=== PATIENT | male | born 1965 | race Caucasian/White ===

== ENCOUNTER → 2021-09-30 11:56 | Outpatient (CLI) | payer OTHER, SELFPAY ==
[2021-09-30 20:14] LABS: Add Manual Diff / Slide Review NO; Basophils Absolute Auto 0 /uL (0-100); Basophils Percent Auto 1.1 % (0-2); Eosinophils Absolute Auto 100 /uL (0-450); Eosinophils Percent Auto 1.9 % (2-4); Hematocrit 41.9 % (41-53); Hemoglobin 14.4 g/dL (13.5-17.5); Lymphocytes Absolute Auto 1200 /uL (1100-4500); Lymphocytes Percent Auto 30.7 % (25-40); Mean Corpuscular HGB Conc 34.3 % (30-36); Mean Corpuscular Hemoglobin 29.8 PG (26-34); Monocytes Absolute Auto 300 /uL (0-900); Monocytes Percent Auto 8.6 % (3-14); Neutrophils Absolute Auto 2300 /uL (1500-7000); Neutrophils Percent Auto 57.7 % (50-75); Platelet Count 263 X10^3/uL (150-400); Red Blood Cell Count 4.81 X10^6/uL (4.5-5.9); Red Cell Distribution Width 13.9 % (11.6-14.8)
== END ==
PROVIDERS: PCP Family Medicine; Referring Provider Family Medicine; Visit Provider Family Medicine
DX: D72.819 Decreased white blood cell count, unspecified (principal)
CPT/HCPCS: 85025

== ENCOUNTER → 2022-01-24 06:49 | Outpatient (CLI) | payer OTHER, SELFPAY ==
[2022-01-24 20:21] LABS: COVID19 - ORCAS (NP or Nasal) Negative (Negative)
== END ==
PROVIDERS: PCP Family Medicine; Visit Provider Family Medicine
DX: Z20.822 Contact with and (suspected) exposure to COVID-19 (principal); Z01.812 Encounter for preprocedural laboratory examination
CPT/HCPCS: U0003

== ENCOUNTER 2022-01-25 06:41 | Day surgery (SDC) | payer OTHER, SELFPAY ==
[2022-01-25 07:12] VITALS: BMI 28.5
[2022-01-25 07:16] VITALS: BP 125/78; PULSE 50; RESP 12; TEMP 36.6; O2SAT 98
[2022-01-25] MEDS: LACTATED RINGERS 1,000 ML 42 ML IV (07:28)
--- NOTE | 2022-01-25 07:41 | P.HP_ITS ---
History of Present Illness History of Present Illness Date Patient Seen: 01/25/22 Time Patient Seen: 07:41 Chief complaint: Colonoscopy Narrative: H/o colon polyps, no symptoms, no family history for colon cancer. Patient History Medical History Antiphospholipid syndrome Calculus of gallbladder Ganglion cyst History of colon polyps History of pulmonary embolism Intracranial venous sinus thrombosis, nonpyogenic Other ferry terminal supervisor (current) drug therapy Pure hypercholesterolemia Family & Social History Social History: household members spouse Tobacco & Substance use: Smoking Status Never smoker alcohol intake frequency 0-2 drinks per day Substance Use Type does not use Meds Home Medications and Allergies Home Medications Medication Instructions Recorded Confirmed Type cetirizine 10 mg capsule (All Day 10 mg PO DAILY PRN Allergy Symptoms 09/02/20 01/25/22 History Allergy (cetirizine)) coenzyme Q10 100 mg capsule 100 mg PO DAILY 09/02/20 01/25/22 History melatonin PO 09/02/20 07/28/21 History multivitamin with minerals PO 09/02/20 07/28/21 History [Multiple Vitamin] omeprazole 10 mg capsule,delayed 10 mg PO DAILY PRN acid reflx 09/02/20 01/25/22 History release pt/inr test strip #1 ea 09/02/20 07/28/21 History atorvastatin 20 mg tablet 20 mg PO BEDTIME #90 tabs 07/28/21 01/25/22 Rx warfarin 10 mg tablet 10 mg PO DAILY #90 tabs 07/28/21 01/25/22 Rx warfarin 2.5 mg tablet 2.5 - 5 mg PO DAILY #180 tabs 07/28/21 01/25/22 Rx enoxaparin 40 mg/0.4 mL 40 mg (0.4 mL) SUBCUT Q12H #4 mL 11/18/21 01/25/22 Rx subcutaneous syringe sodium,potassium,mag sulfates 17.5 See Rx Instructions PO .COMPLEX 11/30/21 01/25/22 Rx gram-3.13 gram-1.6 gram oral soln #354 mL (Suprep Bowel Prep Kit) Allergies Allergy/AdvReac Type Severity Reaction Status Date / Time No Known Drug Allergies Allergy Verified 01/25/22 07:07 Review of Systems Review of Systems ROS: Yes All systems reviewed with the patient and are negative except as otherwise documented Exam Vital Signs (past 8 hours): - 01/25/22 07:16 Temperature 97.9 F Pulse Rate 50 L Respiratory Rate 12 Blood Pressure 125/78 Pulse Oximetry 98 Oxygen Delivery Method Room Air Oxygen Delivery Method Room Air Const General: cooperative and healthy appearing Nutritional Appearance: average body habitus HENMT Head: normal to inspection Teeth and gingiva: dentition normal Throat: posterior oropharynx normal Eyes General: appearance normal, both eyes and all related structures Sclera: sclerae normal Neck Neck: trachea midline Chest Chest: normal inspection of the chest Resp Effort & Inspection: normal respiratory effort Cardio Rate: regular rate Rhythm: regular rhythm GI Inspection: normal to inspection Palpation: soft Skin General: no rashes or lesions noted Neuro General: patient alert, patient awake and patient oriented x3 Cognition: normal cognition Psych Appearance: grossly normal Judgment: judgment good Assessment & Plan Assessment & Plan narrative: h/o colon polyps colonoscopy with anesthesia COVID-19 COVID-19 status: Negative Time Spent With Patient Critical Care time: I spent a total of [] minutes of critical care time on this patient's care today; this time is exclusive of procedural time.
--- NOTE | 2022-01-25 07:45 | PM.OP.COLON ---
Operative Date/Time/Diagnoses Date of procedure: 01/25/22 Time of procedure: 08:10 Pre-op diagnosis: History of colon polyps Post-op diagnosis: same Procedure & Clinicians Study performed: Colonoscopy with anesthesia Same procedure as scheduled: Yes Indications: History of colon polyps Surgeon: Margie Waite Procedure Notes Procedure in detail: Preop diagnosis: History of colon polyps Postop diagnosis: Same Operative procedure: Colonoscopy with anesthesia Findings: No polyps, no diverticulosis. No abnormalities Surgeon: Anita Waite MD Anesthetic: Per anesthesia Procedure: Patient placed in a lateral position. Rectal exam performed showing normal tone no masses. Colonoscope inserted into the rectum and advanced to ileocecal valve with minimal difficulty. Insufflation and extraction of the scope including retroflex in the rectum had the above findings. Impression: Normal colonoscopy. No polyps identified. No diverticulosis appreciated. Plan: Repeat colonoscopy in 5 years unless otherwise indicated by change in clinical condition Specimen(s): none sent Complications: none Post-procedure Recommendations: Colonoscopy in 5 years Follow up: as needed Disposition: PACU
[2022-01-25 08:10] VITALS: BP 89/57; PULSE 55; RESP 16; TEMP 36.6; O2SAT 97
[2022-01-25 08:15] VITALS: BP 103/68; PULSE 55; RESP 16; O2SAT 97
[2022-01-25 08:20] VITALS: BP 105/76; PULSE 64; RESP 18; TEMP 36.6; O2SAT 98
[2022-01-25 08:25] VITALS: BP 103/71; PULSE 63; RESP 20; O2SAT 98
[2022-01-25 08:30] VITALS: BP 116/78; PULSE 61; RESP 14; TEMP 36.6; O2SAT 98
== END 2022-01-25 08:44 | disposition home or self-care (01) ==
PROVIDERS: PCP Family Medicine; Referring Provider Surgery; Visit Provider Surgery
PROC: 0DJD8ZZ Inspection of Lower Intestinal Tract, Via Natural or Artificial Opening Endoscopic (ICD-10-PCS; CPT 45378; principal; 2022-01-25 07:45)
DX: Z12.11 Encounter for screening for malignant neoplasm of colon (principal); Z86.010 Personal history of colon polyps
CPT/HCPCS: 45378; J2704; J3010

== ENCOUNTER → 2022-02-01 10:50 | Outpatient (CLI) | payer OTHER, SELFPAY ==
--- NOTE | 2022-02-01 10:51 | DI.CT.S_ITS ---
PROCEDURE: CT CHEST ABD PEL W CON INDICATIONS: Worsening bilateral flank pain negative lab and plain xray TECHNIQUE: After the administration of oral and intravenous contrast, axial sections acquired from the supraclavicular neck to the pubic symphysis. Coronal and sagittal reformats were performed. For radiation dose reduction, the following was used: automated exposure control, adjustment of mA and/or kV according to patient size. COMPARISON: None. FINDINGS: Image quality: Excellent. CHEST: Lower Neck: No enlarged lymph nodes. Thyroid: Unremarkable. Axillae: No enlarged lymph nodes. Chest Wall: Unremarkable. Lungs and Airways: No consolidation. There is a 6 mm, 4 mm, and 5 mm pulmonary nodule within the left lower lobe (series 3/image is 214, 221, and 237, respectively). A pleural-based 4 mm pulmonary nodule is present within the right lower lobe (series 3/image 256). Pleura: No pneumothorax or pleural effusions. Heart: Heart size is normal. No pericardial effusion. Thoracic Vessels: The aorta and pulmonary arteries demonstrate normal size. Mediastinum and Yanira: No enlarged lymph nodes. Esophagus: No wall thickening. No hiatal hernia. ABDOMEN: Liver: Unremarkable. Gallbladder: A 1.0 cm gallstone is present within the gallbladder fundus. No gallbladder wall thickening or pericholecystic fluid. Biliary ducts: Unremarkable. Pancreas: Unremarkable. Spleen: Unremarkable. Adrenal Glands: Unremarkable. Kidneys and Ureters: Unremarkable. Stomach and Bowel: Stomach, small bowel loops, and colon are unremarkable. The appendix is not visualized; however there is no discrete right lower quadrant fluid or fat stranding to suggest acute appendicitis. Peritoneum: No abnormal intraperitoneal fluid. No free air. Ventral Wall: No hernia. Abdominal Nodes: No retroperitoneal or mesenteric adenopathy by size criteria. Vessels: Aorta and inferior vena cava are normal in size. There are scattered atheromatous calcifications throughout the aorta and iliac arteries bilaterally. PELVIS: Pelvic Organs: Unremarkable. Bladder: Unremarkable. Pelvic Nodes: No enlarged lymph nodes. Miscellaneous: No inguinal hernias are seen. Bones: Unremarkable. IMPRESSION: 1. No hydronephrosis, nephrolithiasis, hydroureter, or ureterolithiasis. No findings to explain flank pain. 2. The appendix is not visualized; however there are no ancillary findings to suggest acute appendicitis. 3. 4-6 mm pulmonary nodules as above. 6-[address] follow-up recommended. Please see follow-up guidelines below. Fleischner Society criteria for SOLID lung nodule followup. Nodule size (mm)Low-risk patientHigh-risk patient<6 (single or multiple)No routine followup.Optional CT at 12 months. 6-8 (single or multiple)CT at 6-12 months, then optional CT at 18-24 mo.CT at 6-12 months, then CT at 18-24 months. >8 (single)CT at 3 months, PET-CT, or biopsy. Same as for low-risk pts. >8 (multiple)CT at 3-6 months, then optional CT at 18-24 mo.CT at 3-6 months, then CT at 18-24 months. Fleischner Society criteria for SUB-SOLID lung nodule followup. Solitary pure ground-glass nodules<6 mm (ground glass or part solid)No followup needed. 6 mm or larger (ground glass)CT at 6-12 months to confirm persistence, then CT every 2 years until 5 years.6 mm or larger (part solid)CT at 3-6 months to confirm persistence, then annual CT until 5 years if unchanged and solid component remains <6 mm. Multiple sub-solid nodules<6 mmCT at 3-6 months, then CT consider at 2 & 4 years for high risk patients. [address] at 3-6 months. Subsequent management based on most suspicious lesions. Recommendations do not apply to lung cancer screening, patients with immunosuppression, or patients with known primary cancer. Dictated by: Rona Echols M.D. on 02/01/2022 at 17:38 Approved by: Rona Echols M.D. on 02/01/2022 at 17:44
== END ==
PROVIDERS: PCP Family Medicine; Referring Provider Family Medicine; Visit Provider Family Medicine
DX: R10.9 Unspecified abdominal pain (principal); R91.8 Other nonspecific abnormal finding of lung field; K80.20 Calculus of gallbladder without cholecystitis without obstruction
CPT/HCPCS: 71260; 74177; Q9967

== ENCOUNTER → 2022-10-31 13:11 | Outpatient (CLI) | payer OTHER, SELFPAY ==
[2022-10-31 20:07] LABS: Add Manual Diff / Slide Review NO; Basophils Absolute Auto 0 /uL (0-100); Basophils Percent Auto 0.7 % (0-2); Eosinophils Absolute Auto 100 /uL (0-450); Hematocrit 38.8 % (41-53); Hemoglobin 13.6 g/dL (13.5-17.5); Lymphocytes Absolute Auto 1400 /uL (1100-4500); Lymphocytes Percent Auto 25.2 % (25-40); Mean Corpuscular Hemoglobin 29.7 PG (26-34); Mean Corpuscular Volume 84.9 fL (80-100); Monocytes Absolute Auto 400 /uL (0-900); Monocytes Percent Auto 7.3 % (3-14); Neutrophils Absolute Auto 3600 /uL (1500-7000); Neutrophils Percent Auto 64.8 % (50-75); Platelet Count 260 X10^3/uL (150-400); Red Blood Cell Count 4.57 X10^6/uL (4.5-5.9); Red Cell Distribution Width 14.4 % (11.6-14.8); White Blood Cell Count 5.6 X10^3/uL (4.5-11.0)
[2022-10-31 20:19] LABS: Alanine Aminotransferase 31 IU/L (<50); Albumin 3.9 g/dL (3.5-5.0); Albumin Globulin Ratio 1.5 (1.0-2.8); Alkaline Phosphatase 92 U/L (38-126); Aspartate Aminotransferase 47 IU/L (17-59); BUN Creatinine Ratio 24.4 (6-22); Bilirubin Total 0.4 mg/dL (0.2-1.3); Blood Urea Nitrogen 22 mg/dL (9-20); Calcium 8.7 mg/dL (8.4-10.2); Carbon Dioxide 25 mmol/L (22-32); Chloride 101 mmol/L (98-107); Cholesterol 157 mg/dL (140-199); Estimated Glomerular Filt Rate > 60 mL/min (>60); Globulin 2.6 g/dL (1.7-4.1); Glucose 96 mg/dL (70-100); HDL Cholesterol 62 mg/dL (40-60); HEMOLYSIS 24 (0-50); LDL Cholesterol Calculated 78 mg/dL (<100); Sodium 132 mmol/L (137-145); Total Protein 6.5 g/dL (6.3-8.2); Triglycerides 85 mg/dL (35-150)
[2022-10-31 20:42] LABS: TSH w/ Reflex to FT4 1.47 uIU/mL (0.47-4.68)
[2022-10-31 20:45] LABS: Erythrocyte Sedimentation Rate 6 MM/HR (0-15)
== END ==
PROVIDERS: PCP Family Medicine; Visit Provider Family Medicine
DX: D68.61 Antiphospholipid syndrome (principal); E78.00 Pure hypercholesterolemia, unspecified; E78.2 Mixed hyperlipidemia; K21.9 Gastro-esophageal reflux disease without esophagitis; Z86.711 Personal history of pulmonary embolism; G89.29 Other chronic pain; M54.50 Low back pain, unspecified; R10.9 Unspecified abdominal pain; Z86.718 Personal history of other venous thrombosis and embolism
CPT/HCPCS: 80053; 80061; 84443; 85025; 85651

== ENCOUNTER → 2022-11-07 12:02 | Outpatient (CLI) | payer OTHER, SELFPAY ==
--- NOTE | 2022-11-07 12:04 | DI.CT.S_ITS ---
PROCEDURE: CT CHEST WO CON INDICATIONS: Follow up pulm nodules TECHNIQUE: Noncontrast 2.0-2.5 mm thick sections acquired from the pulmonary apices to the posterior costophrenic angles. 7 mm thick axial MIP and 5 mm coronal and sagittal reformats were then acquired. A low radiation dose technique was utilized. COMPARISON: [facility], CT, CT CHEST ABD PEL W CON, 02/01/2022, 12:28. FINDINGS: Image quality: Diagnostic, given the low radiation dose technique. Lungs and pleura: The 4-6 mm pulmonary nodules at the left lung base visualized on the comparison CT dated February 01, 2022 are unchanged in size. No new pulmonary nodules. No acute airspace opacities. No pleural effusion or pneumothorax. Mediastinum: Heart size is normal. No pericardial effusion. No mediastinal adenopathy by size criteria. Thoracic aorta and central pulmonary arteries are normal in size. Esophagus is normal in caliber. No hiatal hernia. Bones and chest wall: No suspicious bony lesions. No vertebral body compression fractures. No axillary or supraclavicular adenopathy by size criteria. Thyroid gland is unremarkable. Abdomen: A 1.1 cm gallstone is present within the gallbladder fundus. Visualized upper abdomen solid organs and bowel loops appear otherwise normal in the absence of contrast. IMPRESSION: 1. Stable 4-6 mm pulmonary nodules when compared with the CT dated February 01, 2022. In a low risk patient, no further follow-up recommended. In a high-risk patient, [address] follow-up is optional. Fleischner Society criteria for SOLID lung nodule followup. Nodule size (mm)Low-risk patientHigh-risk patient<6 (single or multiple)No routine followup.Optional CT at 12 months. 6-8 (single or multiple)CT at 6-12 months, then optional CT at 18-24 mo.CT at 6-12 months, then CT at 18-24 months. >8 (single)CT at 3 months, PET-CT, or biopsy. Same as for low-risk pts. >8 (multiple)CT at 3-6 months, then optional CT at 18-24 mo.CT at 3-6 months, then CT at 18-24 months. Fleischner Society criteria for SUB-SOLID lung nodule followup. Solitary pure ground-glass nodules<6 mm (ground glass or part solid)No followup needed. 6 mm or larger (ground glass)CT at 6-12 months to confirm persistence, then CT every 2 years until 5 years.6 mm or larger (part solid)CT at 3-6 months to confirm persistence, then annual CT until 5 years if unchanged and solid component remains <6 mm. Multiple sub-solid nodules<6 mmCT at 3-6 months, then CT consider at 2 & 4 years for high risk patients. [address] at 3-6 months. Subsequent management based on most suspicious lesions. Recommendations do not apply to lung cancer screening, patients with immunosuppression, or patients with known primary cancer. Dictated by: Rona Echols M.D. on 11/07/2022 at 17:01 Approved by: Rona Echols M.D. on 11/07/2022 at 17:05
== END ==
PROVIDERS: PCP Family Medicine; Referring Provider Family Medicine; Visit Provider Family Medicine
DX: R91.8 Other nonspecific abnormal finding of lung field (principal)
CPT/HCPCS: 71250

== ENCOUNTER → 2023-01-18 13:08 | Outpatient (CLI) | payer OTHER, SELFPAY ==
[2023-01-18 19:42] LABS: HEMOLYSIS < 15 (0-50); Iron 96 ug/dL (49-181)
[2023-01-18 19:44] LABS: BUN Creatinine Ratio 17.8 (6-22); Blood Urea Nitrogen 19 mg/dL (9-20); Calcium 9.5 mg/dL (8.4-10.2); Carbon Dioxide 28 mmol/L (22-32); Chloride 100 mmol/L (98-107); Estimated Glomerular Filt Rate > 60 mL/min (>60); Glucose 55 mg/dL (70-100); HEMOLYSIS < 15 (0-50); Potassium 4.3 mmol/L (3.4-5.1); Sodium 135 mmol/L (137-145)
[2023-01-18 19:45] LABS: Add Manual Diff / Slide Review NO; Basophils Absolute Auto 100 /uL (0-100); Eosinophils Absolute Auto 100 /uL (0-450); Eosinophils Percent Auto 1.2 % (2-4); Hematocrit 43.7 % (41-53); Hemoglobin 15.1 g/dL (13.5-17.5); Lymphocytes Absolute Auto 1600 /uL (1100-4500); Lymphocytes Percent Auto 20.2 % (25-40); Mean Corpuscular HGB Conc 34.6 % (30-36); Mean Corpuscular Hemoglobin 29.6 PG (26-34); Mean Corpuscular Volume 85.4 fL (80-100); Monocytes Absolute Auto 500 /uL (0-900); Monocytes Percent Auto 7.1 % (3-14); Neutrophils Absolute Auto 5400 /uL (1500-7000); Neutrophils Percent Auto 70.5 % (50-75); Platelet Count 304 X10^3/uL (150-400); Red Blood Cell Count 5.11 X10^6/uL (4.5-5.9); White Blood Cell Count 7.7 X10^3/uL (4.5-11.0)
[2023-01-18 19:54] LABS: Percent Iron Saturation 27 % (20-50); Total Iron Binding Capacity 362 ug/dL (261-462); Transferrin 271 mg/dL (206-381)
[2023-01-18 19:59] LABS: Reticulocyte Count, Percent 1.1 % (0.9-2.6)
[2023-01-18 20:37] LABS: Vitamin B12 768 pg/mL (239-931)
== END ==
PROVIDERS: PCP Family Medicine; Visit Provider Family Medicine
DX: D64.9 Anemia, unspecified (principal); D68.61 Antiphospholipid syndrome; E87.1 Hypo-osmolality and hyponatremia
CPT/HCPCS: 80048; 82607; 83540; 83550; 85025; 85045

== ENCOUNTER → 2024-02-22 13:06 | Outpatient (CLI) | payer OTHER, SELFPAY ==
--- NOTE | 2024-02-22 13:10 | DI.MRI.S_ITS ---
PROCEDURE: MR LUMBAR SPINE WO CON INDICATIONS: foot drop right TECHNIQUE: Noncontrast sagittal T1 spin echo and T2 fast echo, sagittal STIR, and T2 fast spin echo through the lumbar spine. In cases with scoliosis, additional coronal T2 fast spin echo may be performed. COMPARISON: [facility], CT, CT CHEST ABD PEL W CON, 02/01/2022, 12:28. FINDINGS: Image quality: Excellent. Anatomy: There are 5 nonrib-bearing lumbar vertebrae. Bones: L4 vertebral body hemangioma (2/9). Marrow signal otherwise within normal limits. The vertebral body heights are preserved. Alignment: Preservation of lumbar lordosis. Discs: Mild disc height loss and desiccation at the L5-S1 level. Preservation of the other intervertebral disc heights and signal. Spinal cord: The conus medullaris ends at the level of T12-L1. No abnormal cord signal. Muscles: Overall muscle bulk is preserved. Prevertebral: No prevertebral soft tissue edema. No abdominal aortic aneurysm. No abnormal prevertebral soft tissue mass in the [id number]. Multilevel findings: Mild-moderate facet arthropathy, most conspicuous at the L4-L5 level (5/27). Minimal multilevel disc bulging. INDIVIDUAL LEVELS: T12-L1: No central canal stenosis. No foraminal stenosis. L1-L2: No central canal stenosis. No foraminal stenosis. L2-L3: No central canal stenosis. No foraminal stenosis. L3-L4: No central canal stenosis. No foraminal stenosis. L4-L5: No central canal stenosis. No foraminal stenosis. L5-S1: No central canal stenosis. No foraminal stenosis. IMPRESSION: 1. No severe central canal or foraminal stenosis. 2. No abnormal cord signal. Dictated by: Vernon Butt M.D. on 02/22/2024 at 15:36 Approved by: Vernon Butt M.D. on 02/22/2024 at 16:07
== END ==
PROVIDERS: PCP Family Medicine; Referring Provider Family Medicine; Visit Provider Family Medicine
DX: M21.371 Foot drop, right foot (principal); M47.816 Spondylosis without myelopathy or radiculopathy, lumbar region; D18.09 Hemangioma of other sites
CPT/HCPCS: 72148

== ENCOUNTER → 2024-04-04 10:30 | Outpatient (CLI) | payer OTHER, SELFPAY | PROVIDERS: Family Provider Family Medicine; PCP Family Medicine; Referring Provider Family Medicine; Visit Provider Family Medicine | DX: M21.371 Foot drop, right foot (principal) | CPT/HCPCS: 95886; 95910 ==

== ENCOUNTER → 2024-05-31 09:11 | Outpatient (CLI) | payer OTHER, SELFPAY ==
[2024-05-31 19:10] LABS: Add Manual Diff / Slide Review NO; Basophils Absolute Auto 0 /uL (0-100); Basophils Percent Auto 1.1 % (0-2); Eosinophils Absolute Auto 100 /uL (0-450); Eosinophils Percent Auto 2.1 % (2-4); Hematocrit 47.1 % (41-53); Hemoglobin 16.3 g/dL (13.5-17.5); Lymphocytes Absolute Auto 1100 /uL (1100-4500); Lymphocytes Percent Auto 31.6 % (25-40); Mean Corpuscular HGB Conc 34.6 % (30-36); Mean Corpuscular Hemoglobin 30.2 PG (26-34); Mean Corpuscular Volume 87.2 fL (80-100); Monocytes Absolute Auto 300 /uL (0-900); Monocytes Percent Auto 9.5 % (3-14); Neutrophils Absolute Auto 1900 /uL (1500-7000); Neutrophils Percent Auto 55.7 % (50-75); Platelet Count 253 X10^3/uL (150-400); White Blood Cell Count 3.4 X10^3/uL (4.5-11.0)
[2024-05-31 19:18] LABS: BUN Creatinine Ratio 21.2 (6-22); Blood Urea Nitrogen 21 mg/dL (9-20); Calcium 9.7 mg/dL (8.4-10.2); Carbon Dioxide 22 mmol/L (22-32); Chloride 104 mmol/L (98-107); Cholesterol 170 mg/dL (140-199); Estimated Glomerular Filt Rate > 60 mL/min (>60); Glucose 88 mg/dL (70-100); HDL Cholesterol 55 mg/dL (40-60); LDL Cholesterol Calculated 98 mg/dL (<100); Sodium 137 mmol/L (137-145); Triglycerides 87 mg/dL (35-150)
[2024-05-31 19:31] LABS: HEMOLYSIS 62 (0-50); Potassium 4.5 mmol/L (3.4-5.1)
[2024-05-31 19:49] LABS: Prostate Specific Antigen Scrn 1.39 ng/mL (0.1-4.0)
== END ==
PROVIDERS: Family Provider Family Medicine; PCP Family Medicine; Visit Provider Family Medicine
DX: D64.9 Anemia, unspecified (principal); Z86.711 Personal history of pulmonary embolism; Z86.718 Personal history of other venous thrombosis and embolism; E78.2 Mixed hyperlipidemia; E87.1 Hypo-osmolality and hyponatremia; R91.8 Other nonspecific abnormal finding of lung field; Z12.5 Encounter for screening for malignant neoplasm of prostate; D68.61 Antiphospholipid syndrome
CPT/HCPCS: 80048; 80061; 85025; G0103

== ENCOUNTER → 2024-07-18 11:10 | Outpatient (CLI) | payer OTHER, SELFPAY ==
--- NOTE | 2024-07-18 11:12 | DI.MRI.S_ITS ---
PROCEDURE: MR LOWER LEG RT WO CON INDICATIONS: foot drop and numbness with peroneal nerve distribution TECHNIQUE: Noncontrast coronal and sagittal T1 spin echo and STIR; axial T1 spin echo and T2 fast spin echo with fat saturation through the right lower leg COMPARISON: None. FINDINGS: Image quality: Excellent. Bones: The visualized bone marrow demonstrates normal signal on all sequences. The overlying cortex appears intact. No fractures lines or intra-osseous lesions. Soft tissues: The scanned muscles demonstrate normal overall bulk and internal signal. Subcutaneous tissues appear normal as well. No soft tissue masses are present. The visualized portion of common peroneal nerve, superficial and deep peroneal nerve are normal in size and signal without evidence of neuritis. No external mass compression. IMPRESSION: 1. No marrow edema. No fracture or dislocation. No suspicious intraosseous lesions. 2. Normal muscle signal abnormality in the lower leg . No evidence of denervation injury to the muscles. No intramuscular mass or fluid collection. 3. No signal abnormality is seen in visualized portion of right common peroneal nerve and superficial and deep peroneal nerves. 4. No lower leg soft tissue mass or drainable fluid collection. Dictated by: David Rodriguez M.D. on 07/18/2024 at 13:44 Approved by: David Rodriguez M.D. on 07/18/2024 at 13:54
== END ==
LOC: MRI 11:11
PROVIDERS: Family Provider Family Medicine; PCP Family Medicine; Referring Provider Family Medicine; Visit Provider Family Medicine
DX: M21.371 Foot drop, right foot (principal)
CPT/HCPCS: 73718

== ENCOUNTER 2024-10-20 16:04 | Emergency (ER) | payer OTHER, SELFPAY ==
[2024-10-20 16:10] VITALS: BP 128/78; PULSE 75; RESP 18; TEMP 37; O2SAT 96; BMI 25.9
--- NOTE | 2024-10-20 16:13 | DI.US.S_ITS ---
PROCEDURE: US PERIPH VENOUS LOW EXTREM RT INDICATIONS: right lower leg pain, h/o DVT TECHNIQUE: Real-time imaging, as well as color and pulse Doppler interrogation, were performed of the lower extremity deep veins from the inguinal ligament to the popliteal fossa, with documentation of the visualized calf veins. COMPARISON: None. FINDINGS: Tiny thread-like nonocclusive thrombus within the right popliteal vein. The common femoral, femoral, and the visualized calf veins are normally compressible, and free of intraluminal thrombus. Color and pulse Doppler demonstrate normal phasic intraluminal flow. There is normal augmentation response to distal compression maneuver. IMPRESSION: Nonobstructive thrombus within the right popliteal vein. Dictated by: Jose Armando Ibarra M.D. on 10/20/2024 at 16:02 Approved by: Jose Armando Ibarra M.D. on 10/20/2024 at 16:08
[2024-10-20 17:20] VITALS: BP 141/85; PULSE 65; RESP 16; O2SAT 99
--- NOTE | 2024-10-20 17:45 | ED.EXTPRO ---
HPI - Extremity Problem <Stella Rueda PA-C - Last Filed: 10/20/24 19:13> General Chief complaint: Extremity Problem,Nontraumatic Stated complaint: lower rt leg pain, history of dvt Time Seen by Provider: 10/20/24 16:41 Source: patient Mode of arrival: Ambulatory History of Present Illness HPI Narrative: Mr. Segovia is a very pleasant 59-year-old male with a past medical history of antiphospholipid syndrome with prior PE, DVT on warfarin who presents to the emergency department for right lower extremity swelling x1 week with dull pain starting today. Patient is concerned for possible DVT. He states his INR was 3.3 most recently. He has not had any prolonged immobilization. He noticed over the last week that his right leg has been becoming slightly more swollen. He was recently diagnosed with foot drop but this is actually resolved. This morning when he woke up he had a dull ache behind the knee and he noticed that his foot was slightly more purple which prompted him to come to the ER. He denies chest pain, shortness of breath, visual disturbance or any other concerns. Related Data Home Medications ?Medication ?Instructions ?Recorded ?Confirmed cetirizine 10 mg capsule (All Day 10 mg PO DAILY PRN Allergy Symptoms 09/02/20 05/15/24 Allergy (cetirizine)) coenzyme Q10 100 mg capsule 100 mg PO DAILY 09/02/20 05/15/24 multivitamin with minerals PO 09/02/20 05/15/24 [Multiple Vitamin] omeprazole 10 mg capsule,delayed 10 mg PO DAILY PRN acid reflx 09/02/20 05/15/24 release pt/inr test strip #1 ea 09/02/20 05/15/24 tirzepatide 3 mg sublingual DAILY 02/15/24 05/15/24 melatonin 10 mg PO DAILY PRN 05/15/24 05/15/24 Previous Rx's ?Medication ?Instructions ?Recorded atorvastatin 20 mg tablet 20 mg PO ONCE PM #90 tabs 09/26/24 warfarin 10 mg tablet 10 mg PO DAILY #90 tabs 09/26/24 warfarin 4 mg tablet 4 mg PO DAILY #90 tabs 10/07/24 Allergies Allergy/AdvReac Type Severity Reaction Status Date / Time No Known Drug Allergies Allergy Verified 10/20/24 16:10 Review of Systems <Stella Rueda PA-C - Last Filed: 10/20/24 19:13> Review of Systems ROS Unobtainable: All systems reviewed & are unremarkable except as noted in HPI and below Patient History <Stella Rueda PA-C - Last Filed: 10/20/24 19:13> Medical History Intracranial venous sinus thrombosis, nonpyogenic History of pulmonary embolism Ganglion cyst Calculus of gallbladder [facility] drug therapy History of colon polyps Antiphospholipid syndrome Social History household members: spouse Smoking Status: Never smoker Smoking Status: Never smoker alcohol intake frequency: 0-2 drinks per day Exam <Stella Rueda PA-C - Last Filed: 10/20/24 19:13> Narrative Exam Narrative: GENERAL: 59 year old patient appears stated age. Well-developed patient, in no acute distress. HEAD: Atraumatic. Normocephalic. NECK: Trachea midline. Cervical ROM intact. CARDIOVASCULAR: Regular rate RESPIRATORY: ?Nonlabored respirations. ?Speaking in clear, full sentences. EXTREMITIES: Right lower extremity is larger/more edematous compared to left. There is no pitting edema. Strong PT and DP pulses bilaterally. Brisk capillary refill in the toes. No color change of the leg. No calf tenderness NEURO: AOx3. ?Clear speech. ?Moves all 4 extremities appropriately. Sensation intact to light touch in the plantar and dorsal aspect of both feet. SKIN: No rash or erythema of visible areas Initial Vital Signs Initial Vital Signs: Vital Signs Temperature 98.6 F 10/20/24 16:10 Pulse Rate 75 10/20/24 16:10 Respiratory Rate 18 10/20/24 16:10 Blood Pressure 128/78 10/20/24 16:10 Pulse Oximetry 96 10/20/24 16:10 Oxygen Delivery Method Room Air 10/20/24 16:10 <Faiza Luis MD - Last Filed: 10/25/24 09:33> Initial Vital Signs Initial Vital Signs: Vital Signs Temperature 98.6 F 10/20/24 16:10 Pulse Rate 75 10/20/24 16:10 Respiratory Rate 18 10/20/24 16:10 Blood Pressure 128/78 10/20/24 16:10 Pulse Oximetry 96 10/20/24 16:10 Oxygen Delivery Method Room Air 10/20/24 16:10 Course <Stella Rueda PA-C - Last Filed: 10/20/24 19:13> Orders Ordered: ED Orders 10/20/24 16:13 US periph venous low extrem rt Stat 10/20/24 17:48 Prothrombin Time INR Stat Vital Signs Vital signs: Vital Signs - 8 hr 10/20/24 16:10 10/20/24 17:20 Temperature 98.6 F Pulse Rate 75 65 Respiratory Rate 18 16 Blood Pressure 128/78 141/85 H Pulse Oximetry 96 99 Oxygen Delivery Method Room Air Room Air <Faiza Luis MD - Last Filed: 10/25/24 09:33> Orders Ordered: ED Orders 10/20/24 16:13 perip venous low extrem rt Stat 10/20/24 17:48 Prothrombin Time INR Stat Vital Signs Vital signs: Vital Signs - 8 hr 10/20/24 16:10 10/20/24 17:20 Temperature 98.6 F Pulse Rate 75 65 Respiratory Rate 18 16 Blood Pressure 128/78 141/85 H Pulse Oximetry 96 99 Oxygen Delivery Method Room Air Room Air MDM - Extremity (Nontraumatic) <Stella Rueda PA-C - Last Filed: 10/20/24 19:13> Medical Records Attestation: I reviewed the patient's medical records. Lab Data Labs: Lab Results 10/20/24 Range/Units 17:48 PT 38.8 H (9.4-12.5) SECONDS INR 3.5 H (0.9-1.3) Imaging Data RLE Vascular US: Radiologist's Impression: PROCEDURE: US PERIPH VENOUS LOW EXTREM RT INDICATIONS: right lower leg pain, h/o DVT TECHNIQUE: Real-time imaging, as well as color and pulse Doppler interrogation, were performed of the lower extremity deep veins from the inguinal ligament to the popliteal fossa, with documentation of the visualized calf veins. COMPARISON: None. FINDINGS: Tiny thread-like nonocclusive thrombus within the right popliteal vein. The common femoral, femoral, and the visualized calf veins are normally compressible, and free of intraluminal thrombus. Color and pulse Doppler demonstrate normal phasic intraluminal flow. There is normal augmentation response to distal compression maneuver. IMPRESSION: Nonobstructive thrombus within the right popliteal vein. Dictated by: Jose Armando Ibarra M.D. on 10/20/2024 at 16:02 Approved by: Jose Armando Ibarra M.D. on 10/20/2024 at 16:08 [facility] Narrative Medical decision making narrative: 59-year-old male with a past medical history of antiphospholipid syndrome with prior PE, DVT on warfarin who presents to the emergency department for right lower extremity swelling x1 week with dull pain starting today. Differential diagnosis includes but is not limited to DVT, superficial thrombophlebitis, cellulitis, etc. On exam patient is in no acute distress, nontoxic appearing, vital signs appropriate. He has mild enlargement/swelling of the right leg in comparison to the left. Legs are neurovascularly intact with strong pulses, brisk capillary refill and sensation intact to light touch. Right lower extremity venous ultrasound was obtained revealing tiny thread-like nonocclusive thrombus within the right popliteal vein. His INR was checked and is currently 3.5. Discussed the case with the attending ED physician, recommend patient keeps his INR close to 3.5 until he can follow up with his primary care doctor for further discussion of possible warfarin failure. Recommended supportive care, continuation of his warfarin. I did advise that he follow up with turf and grounds supervisor as well. Discussed strict ED return precautions including chest pain, shortness of breath or any other concerns. Patient his verbalized understanding of all information agreeable with the plan. He is stable for discharge home. <Faiza Luis MD - Last Filed: 10/25/24 09:33> Lab Data Labs: Lab Results 10/20/24 Range/Units 17:48 PT 38.8 H (9.4-12.5) SECONDS INR 3.5 H (0.9-1.3) Discharge Plan Departure Patient Disposition: Home Clinical Impression: Non-occlusive thrombus, Thrombosis of right popliteal vein Instructions: DI for Deep Vein Thrombosis Activity Restrictions/Additional Instructions: Dear Luca, Thank you for coming to the emergency department. Today you were evaluated for right lower leg swelling. Your ultrasound revealed a nonocclusive thrombus in the popliteal vein. At this time we recommend you continue taking your warfarin, and aim to have an INR closer to 3.5 until you can be evaluated by your primary care doctor for possible evaluation of warfarin failure, you may benefit following with a turf and grounds supervisor as well which your doctor can refer you to. Please elevate the leg, avoid deep massage of the leg, wear compression socks. Return to the ER immediately if you develop chest pain, shortness of breath, or any other concerns. Please follow up with your primary care doctor within the next 2-3 days for ER follow-up. (If you do not have a PCP you can call [phone]. ?to schedule an appointment with an [facility] Primary Care Provider) IF YOU DEVELOP ANY NEW OR WORSENING SYMPTOMS, RETURN TO THE ER! Please read the attached instructions, they highlight more specific treatments and interventions for you at home. Thank you for letting me participate in your care, Stella Rueda PA-C Prescriptions: No Action atorvastatin 20 mg tablet 20 mg PO ONCE PM Qty: 90 1RF warfarin 10 mg tablet 10 mg PO DAILY Qty: 90 0RF warfarin 4 mg tablet 4 mg PO DAILY Qty: 90 0RF tirzepatide 3 mg sublingual DAILY omeprazole 10 mg capsule,delayed release(DR/EC) 10 mg PO DAILY PRN (Reason: acid reflx) multivitamin with minerals [Multiple Vitamin] PO (DME) pt/inr test strip See Rx Instructions .Route .MEDSUPPLY Qty: 1 Rx Instructions: use ones strip as directed All Day Allergy (cetirizine) 10 mg capsule 10 mg PO DAILY PRN (Reason: Allergy Symptoms) coenzyme Q10 100 mg capsule 100 mg PO DAILY melatonin 10 mg PO DAILY PRN Referrals: Hilario Dorado MD [Primary Care Provider, Family Practice] Stand Alone Forms: Patient Portal/API ED Sign-out <Faiza Luis MD - Last Filed: 10/25/24 09:33> Cosign ED Attending Cosanyiature Attestation: I was immediately available in the department for consultation throughout this patient's visit. Faiza Luis MD
[2024-10-20 18:02] LABS: INR 3.5 (0.9-1.3); Prothrombin Time 38.8 SECONDS (9.4-12.5)
== END 2024-10-20 18:19 | disposition home or self-care (01) ==
PROVIDERS: Emergency Provider Physician Assistant; Family Provider Family Medicine; PCP Family Medicine
DX: I82.431 Acute embolism and thrombosis of right popliteal vein (principal); Z86.711 Personal history of pulmonary embolism; Z79.01 Long term (current) use of anticoagulants; Z86.718 Personal history of other venous thrombosis and embolism
CPT/HCPCS: 36415; 85610; 93971; 99281; 99284